=== PATIENT | female | born 1995 | race Caucasian/White ===

== ENCOUNTER 2017-11-25 13:27 | Emergency (ER) | payer OTHER ==
[2017-11-25 14:33] VITALS: BP 128/84
--- NOTE | 2017-11-25 14:46 | UC ---
Throat Pain/Nasal Randell HPI - HPI Summary HPI Summary: 22F presents with sore throat for past 3 days and cough for past two days. She denies any history of strept. She denies any fever. She admits to sinus congestion. She denies any abdominal pain, nausea or vomiting. She denies any headache. She has been taking Tylenol which has been helping. She denies any medical history. - History of Current Complaint Chief Complaint: UCRespiratory Stated Complaint: SORE THROAT COUGH Time Seen by Provider: 11/25/17 14:22 Hx Last Menstrual Period: 11/14/17 Pain Intensity: 5 - Allergies/Home Medications Allergies/Adverse Reactions: Allergies Allergy/AdvReac Type Severity Reaction Status Date / Time No Known Allergies Allergy Verified 11/25/17 14:25 PMH/Surg Hx/FS Hx/Imm Hx Endocrine History: Other Other Endocrine History: no DM Cardiovascular History: Other Other Cardiovascular History: no HTN - Surgical History Surgical History: None - Family History Known Family History: Negative: Respiratory Disease - Social History Alcohol Use: Rare Substance Use Type: None Smoking Status (MU): Never Smoked Tobacco - Immunization History Most Recent Influenza Vaccination: [id number] Review of Systems Constitutional: Negative ENT: Sore Throat Respiratory: Cough All Other Systems Reviewed And Are Negative: Yes Physical Exam Triage Information Reviewed: Yes Appearance: Well-Appearing Vital Signs: Initial Vital Signs Temp 99.2 F 11/25/17 14:25 Pulse 96 11/25/17 14:25 Resp 18 11/25/17 14:25 BP 128/84 11/25/17 14:25 Pulse Ox 100 11/25/17 14:25 Vital Signs Reviewed: Yes Eyes: Positive: Conjunctiva Clear ENT: Positive: Pharyngeal erythema, TMs normal, Uvula midline, Other - soft palate symmetric. Negative: Tonsillar swelling, Tonsillar exudate, Trismus, Muffled voice Neck: Positive: Supple, Nontender, No Lymphadenopathy Respiratory: Positive: Lungs clear, Normal breath sounds Cardiovascular: Positive: RRR Abdomen Description: Positive: Nontender, Soft Bowel Sounds: Positive: Present Musculoskeletal Exam: Normal Neurological Exam: Normal Psychological Exam: Normal Skin Exam: Normal Throat Pain/Nasal Course/Dx - Course Course Of Treatment: 22F presents with sore throat for past 3 days and cough for past two days. She denies any history of strept. She denies any fever. She admits to sinus congestion. She denies any abdominal pain, nausea or vomiting. She denies any headache. She has been taking Tylenol which has been helping. She denies any medical history. pharynx erythema, uvula midline, soft palate symmetric, lungs CTA. strept neg. will have establish care with primary about blood pressure as in pre-htn range. will treat with tessalon and decadron for sore throat. patient understand and agrees with plan. - Differential Dx/Diagnosis Differential Diagnosis/HQI/PQRI: Pharyngitis, Tonsillitis, URI Provider Diagnoses: upper respiratory infection Discharge - Discharge Plan Condition: Good Disposition: HOME Prescriptions: Benzonatate CAP* [Tessalon 100 MG CAP*] 100 mg PO TID #21 cap Dexamethasone TAB* [Decadron TAB*] 4 mg PO DAILY #5 tab Patient Education Materials: Upper Respiratory Infection (ED) Referrals: [facility] [place] [facility] [Outside] Additional Instructions: Take steroid once a day for 5 days Take tessalon three times a day for cough Take Tylenol or ibuprofen for pain every 6 hours Use saline spray in nose as much as needed for nasal congestion Use humidifier in room or can use warm water in bowls for cough Can gargle salt water Can use cough drops or products such as cloraseptic spray Establish care with primary care physician Return to ED if develop any new or worsening symptoms
== END 2017-11-25 14:57 | disposition home or self-care (01) ==
LOC: UCCORT 13:27
DX: J06.9 Acute upper respiratory infection, unspecified (principal)
CPT/HCPCS: 87651; 99212; G0463